=== PATIENT | female | born 1945 | race Two or more races ===

== ENCOUNTER → 2017-03-17 | Outpatient (CLI) | payer MEDICARE, OTHER | LOC: WI 10:06 | PROVIDERS: ATTEND Nurse Practitioner | DX: Z12.31 Encounter for screening mammogram for malignant neoplasm of breast (principal) | CPT/HCPCS: 77067; G0202 ==

== ENCOUNTER → 2018-05-03 | Outpatient (CLI) | payer MEDICARE, OTHER ==
--- NOTE | 2018-05-05 17:25 | WOMENS IMAGING REPORT ---
EXAM DESCRIPTION: 3D SCREENING MAMMO BILAT COMPLETED DATE/TIME: 05/03/2018 10:48 am REASON FOR STUDY: SCREENING MAMMO Z12.31 ENCNTR SCREEN MAMMOGRAM FOR MALIGNANT NEOPLASM OF ISAI COMPARISON: 2012 to 2016 TECHNIQUE: Standard craniocaudal and mediolateral oblique views of each breast recorded using digita l acquisition and breast tomosynthesis. LIMITATIONS: None. FINDINGS: No masses, calcifications or architectural distortion. No areas of suspicion. Read with the assistance of CAD. .[facility] - R2 Cenova Version 1.3 .[facility] - R2 Cenova Version 1.3 .[facility] - R2 Cenova Version 2.4 .[facility] - R2 Cenova Version 2.4 .[facility] - R2 Auditing Coder Version 9.2 IMPRESSION: NORMAL MAMMOGRAM. BIRADS 1. BREAST DENSITY: b. There are scattered areas of fibroglandular density. BIRAD: 1 NEGATIVE RECOMMENDATION: ROUTINE SCREENING COMMENT: The patient has been notified of the results by letter per SA requirements. Additional no tification policies are in place for contacting patient with suspicious or incomplete findings. Quality ID #225: The [employer] recommends an annual screening mammogram for women aged 40 years or over. This facility utilizes a reminder system to ensure that all patients receive reminder letters, and/or direct phone calls for appointments. This includes reminders for routine scr eening mammograms, diagnostic mammograms, or other Breast Imaging Interventions when appropriate. Th is patient will be placed in the appropriate reminder system. The [employer] (ACR) has developed recommendations for screening MRI of the breast s in certain patient populations, to be used in conjunction with mammography. Breast MRI surveillanc e may be appropriate for women with more than 20% lifetime risk of developing breast cancer as deter mined by genetic testing, significant family history of the disease, or history of mantle radiation f or Hodgkins Disease. ACR Practice Guidelines 2008. DBT Technology DBT is a type of tomographic mammography. With conventional mammography, overlapping breast tissue ma y make lesions difficult to detect, even with good compression. DBT uses an x-ray tube that rotates a round the breast, taking images at different angles. These images are then combined to create thin sl ices of the breast that the radiologist can view as a 3D reconstruction. The [facility] unit can perform full-field digital mammograms (2D imaging); or DBT (3D imaging); or both, in a combination mode that quickly performs both the mammogram and the tomosynthesis scan while the breast is still compressed. PQRS 6045F: Fluoroscopic imaging is not utilized for breast tomosynthesis. TECHNICAL DOCUMENTATION: FINDING NUMBER: (1) ASSESSMENT: (1) JOB ID: [id number] [employer]- All Rights Reserved Reading location - IP/workstation name: [email or web address]
== END ==
LOC: WI 10:08
PROVIDERS: ATTEND Nurse Practitioner
DX: Z12.31 Encounter for screening mammogram for malignant neoplasm of breast (principal)
CPT/HCPCS: 77063; 77067

== ENCOUNTER 2019-02-13 14:04 | Inpatient (IN) | payer MEDICARE, OTHER ==
[2019-02-13] MEDS ORDERED: METHYLPREDNISOLONE INJ 125 MG/2 ML SDV IV ONE (14:27)
--- NOTE | 2019-02-13 14:48 | ER Document Report ---
ED General - General Chief Complaint: Shortness Of Breath Stated Complaint: SHORTNESS OF BREATH Time Seen by Provider: 02/13/19 14:17 TRAVEL OUTSIDE OF THE [place] IN LAST 30 DAYS: No - HPI Notes: Patient is a 74-year-old female presents to the emergency department for evaluation of difficulty breathing. She states that this is been going on for about 2 weeks. She states it feels consistent with her asthma. She has had a dry cough. She denies any pain of any sort. No fevers or chills, no nausea or vomiting. She does relate that she has had swelling in her legs. This is been going on for about a week. She has had bouts of this in the past. She is never been told she has heart failure. She does relate that she sleeps on 3 pillows at night. She denies any paroxysmal nocturnal dyspnea. She states she has nebulizers at home and they do not seem to work very consistently for her. She does feel improved after the DuoNeb treatment she received in route. She denies being on steroids recently. - Related Data Allergies/Adverse Reactions: No Known Allergies Allergy (Verified 07/26/16 08:19) Past Medical History - General Information source: Patient - Social History Smoking Status: Former Smoker Chew tobacco use (# tins/day): No Frequency of alcohol use: None Drug Abuse: None Family History: Reviewed & Not Pertinent Patient has suicidal ideation: No Patient has homicidal ideation: No - Past Medical History Cardiac Medical History: Reports: Hx Hypertension Denies: Hx Coronary Artery Disease, Hx DVT, Hx Heart Attack, Hx Peripheral Vascular Disease, Hx Pulmonary Embolism Pulmonary Medical History: Reports: Hx Asthma, Hx Pneumonia Denies: Hx Bronchitis Neurological Medical History: Denies: Hx Cerebrovascular Accident, Hx Seizures Renal/ Medical History: Denies: Hx Peritoneal Dialysis GI Medical History: Reports: Hx Gastroesophageal Reflux Disease Musculoskeletal Medical History: Reports Hx Arthritis Psychiatric Medical History: Reports: Hx Anxiety - and insomnia Past Surgical History: Reports: Hx Gynecologic Surgery - BLADDER SLING, Hx Orthopedic Surgery - right great to for hammer toe 15 years ago - Immunizations Hx Diphtheria, Pertussis, Tetanus Vaccination: No Review of Systems - Review of Systems Constitutional: No symptoms reported EENT: No symptoms reported Cardiovascular: See HPI Respiratory: See HPI Gastrointestinal: No symptoms reported Genitourinary: No symptoms reported Musculoskeletal: No symptoms reported Skin: No symptoms reported Neurological/Psychological: No symptoms reported Physical Exam - Vital signs Vitals: Resp Pulse Ox 22 H 94 02/13/19 14:19 02/13/19 14:19 - Notes Notes: Vital signs reviewed, please refer to chart. Patient is normocephalic, atraumatic. Pupils equal round, reactive to light. Neck is supple without meningismus. Heart is regular rate and rhythm. Lungs reveal diminished breath sounds throughout with scant wheeze at the bases, expiratory. Abdomen is soft, nontender, normoactive bowel sounds throughout. Extremities without cyanosis, clubbing. 2+ pitting pretibial edema bilaterally. No posterior calf tenderness. Peripheral pulses are equal. Skin is warm and dry. Patient is awake, alert, neurological exam is nonfocal. Course - Re-evaluation Re-evalutation: 02/13/19 14:46 Patient presents to the emergency department for evaluation. She complains of difficulty breathing, believes it to be her asthma. She does have new onset edema and some orthopnea as well. Will evaluate for signs of congestive heart failure on laboratory investigations. She is given steroids here. Her oxygen saturation remained 92% or above on room air. We will continue to follow. 02/13/19 20:22 Patient's initial troponin came back positive. Her second troponin is trending down. My strong suspicion is that she did have an AK at some point in the last several weeks. The troponins downtrending, I do not suspect this is active at this time, but this is all a new diagnosis of iliac disease. she certainly has new onset congestive heart failure. She has no vascular congestion on x-ray. Unfortunately, however, she does not have cardiology. She has never had any cardiac workup of any sort. She was given low-dose Lasix here, as to not over diurese this patient. She was given aspirin. I spoke to Dr. Vaughan, he will admit the patient for further care. 02/13/19 20:23 - Vital Signs Vital signs: Temp Pulse Resp BP Pulse Ox 97.5 F 84 22 H 157/80 H 92 02/13/19 22:02 02/13/19 22:02 02/13/19 22:02 02/13/19 22:02 02/13/19 22:02 - Laboratory Result Diagrams: 02/13/19 14:41 02/13/19 14:41 Laboratory results interpreted by me: 02/13/19 02/13/19 02/13/19 14:41 14:41 14:41 Plt Count 148 L Carbon Dioxide 35 H NT-Pro-B Natriuret Pep 1460 H - EKG Interpretation by Me Additional EKG results interpreted by me: 02/13/19 14:47 Sinus mechanism with a rate of 63 bpm. Normal axis and intervals, no acute ST changes concerning for ischemia or infarction. Discharge - Discharge Clinical Impression: Congestive heart failure (CHF), Non-ST elevation AK (NSTEMI) Condition: Stable Disposition: ADMITTED OBSERVATION Admitting Provider: Clement (Hospitalist) Unit Admitted: Telemetry
[2019-02-13 15:04] LABS: ABSOLUTE EOSINOPHILS # (AUTO) 0.2 10^3/uL (0.0-0.6); ABSOLUTE MONOCYTES (AUTO) 0.4 10^3/uL (0.1-1.4); ABSOLUTE NEUT (AUTO) 3.8 10^3/uL (1.7-8.2); BASOPHILS % (AUTO) 0.3 % (0-2); HEMATOCRIT 38.5 % (36.0-47.0); HEMOGLOBIN 13.1 g/dL (12.0-15.5); LYMPHOCYTES % (AUTO) 17.9 % (13-45); MEAN CORPUSCULAR HEMOGLOBIN 30.7 pg (27.0-33.4); MEAN CORPUSCULAR HGB CONC 34.2 g/dL (32.0-36.0); MEAN CORPUSCULAR VOLUME 90 fl (80-97); PLATELET COUNT 148 10^3/uL (150-450); RED BLOOD COUNT 4.28 10^6/uL (3.72-5.28); RED CELL DISTRIBUTION WIDTH 13.8 % (11.5-14.0); SEGMENTED NEUTROPHILS % (AUTO) 70.8 % (42-78); TOTAL CELLS COUNTED % (AUTO) 100 %; WHITE BLOOD COUNT 5.4 10^3/uL (4.0-10.5)
--- NOTE | 2019-02-13 15:08 | RADIOLOGY REPORT (SQ) ---
EXAM DESCRIPTION: CHEST SINGLE VIEW COMPLETED DATE/TIME: 02/13/2019 2:49 pm REASON FOR STUDY: dyspnea COMPARISON: None. EXAM PARAMETERS: NUMBER OF VIEWS: One view. TECHNIQUE: Single frontal radiographic view of the chest acquired. RADIATION DOSE: NA LIMITATIONS: None. FINDINGS: LUNGS AND PLEURA: Mild atelectasis at the bilateral lung bases. No sizable pleural effusi on or pneumothorax. Hyperlucent lungs are suggestive of emphysema. MEDIASTINUM AND HILAR STRUCTURES: Contour normal. HEART AND VASCULAR STRUCTURES: The heart is upper normal limit in size. No overt vascular congestion . BONES: No acute findings. HARDWARE: None in the chest. IMPRESSION: Mild bibasilar atelectasis. Emphysema. TECHNICAL DOCUMENTATION: JOB ID: [id number] 2010 [employer]- All Rights Reserved Reading location - IP/workstation name: [email or web address]
[2019-02-13 15:14] LABS: ALANINE AMINOTRANSFERASE 44 U/L (9-52); ALBUMIN 3.9 g/dL (3.5-5.0); ALKALINE PHOSPHATASE 86 U/L (38-126); ANION GAP 6 (5-19); ASPARTATE AMINO TRANSFERASE 29 U/L (14-36); BILIRUBIN,DIRECT 0.3 mg/dL (0.0-0.4); BILIRUBIN,TOTAL 0.7 mg/dL (0.2-1.3); BLOOD UREA NITROGEN 14 mg/dL (7-20); CALCIUM 9.6 mg/dL (8.4-10.2); CARBON DIOXIDE 35 mmol/L (22-30); CHLORIDE 98 mmol/L (98-107); CREATINE KINASE 45 U/L (30-135); GLUCOSE 109 mg/dL (75-110); POTASSIUM 3.8 mmol/L (3.6-5.0); SODIUM 139.3 mmol/L (137-145); TOTAL PROTEIN 6.9 g/dL (6.3-8.2)
[2019-02-13 15:35] LABS: CREATINE KINASE MB 1.37 ng/mL (<4.55)
[2019-02-13 15:37] LABS: TROPONIN I 0.333 ng/mL
[2019-02-13] MEDS ORDERED: ASPIRIN 81 MG TABLET, CHEWABLE PO ONE (15:46)
[2019-02-13] MEDS ORDERED: FUROSEMIDE INJ/PF 20 MG/2 ML SDV IV ONE ×2 (17:20→20:21)
[2019-02-13] MEDS ORDERED: IPRATROPIUM/ALBUTEROL 0.5-2.5 MG/3 ML AMPUL NEB ONE (20:08)
[2019-02-13] MEDS ORDERED: POTASSIUM CHLORIDE 10 MEQ CAPSULE.ER PO ONE (20:21)
[2019-02-13] MEDS ORDERED: ENALAPRILAT DIHYDRATE INJ/PF 1.25 MG/1 ML SDV IV ONE (20:21)
[2019-02-13] MEDS ORDERED: MAGNESIUM HYDROXIDE SUSP 30 ML UDCUP PO PRN (20:22)
[2019-02-13] MEDS ORDERED: MAG HYDROX/AL HYDROX/SIMETH SUSP 30 ML UDCUP PO PRN (20:22)
[2019-02-13] MEDS ORDERED: ZOLPIDEM TARTRATE 5 MG TABLET PO PRN (20:25)
[2019-02-13] MEDS ORDERED: ATORVASTATIN CALCIUM 80 MG TABLET PO ONE (20:26)
[2019-02-13] MEDS ORDERED: CLOPIDOGREL BISULFATE 300 MG TABLET PO ONE (20:28)
[2019-02-13] MEDS ORDERED: (PENDING PHARMACY ID) (Fluticasone/Salmeterol 1 INH) IH SCH (20:30)
[2019-02-13] MEDS: FUROSEMIDE 20 MG TABLET PO SCH (20:49)
[2019-02-13] MEDS: HEPARIN SOD (PORCINE) 5,000 UNIT/ML 1 ML SYRINGE SUBCUT SCH (21:33)
[2019-02-13] MEDS ORDERED: FLUTICASONE/VILANTEROL 200-25 MCG/DOSE IH ONE ×2 (21:40→22:00)
[2019-02-13 21:41] LABS: CREATINE KINASE MB 1.13 ng/mL (<4.55); TROPONIN I 0.285 ng/mL
--- NOTE | 2019-02-13 23:38 | EKG REPORT ---
SEVERITY:- BORDERLINE ECG - SINUS RHYTHM BORDERLINE INFERIOR Q WAVES : Confirmed by: Belinda Daniels 13-Feb-2019 23:37:25
[2019-02-14] MEDS ORDERED: ENALAPRILAT DIHYDRATE INJ/PF 1.25 MG/1 ML SDV IV ONE (00:50)
[2019-02-14 03:35] LABS: ABSOLUTE LYMPHOCYTES (AUTO) 0.4 10^3/uL (0.5-4.7); ABSOLUTE MONOCYTES (AUTO) 0.1 10^3/uL (0.1-1.4); ABSOLUTE NEUT (AUTO) 5.9 10^3/uL (1.7-8.2); BASOPHILS % (AUTO) 0.5 % (0-2); HEMATOCRIT 39.8 % (36.0-47.0); HEMOGLOBIN 13.7 g/dL (12.0-15.5); LYMPHOCYTES % (AUTO) 6.8 % (13-45); MEAN CORPUSCULAR HEMOGLOBIN 30.7 pg (27.0-33.4); MEAN CORPUSCULAR HGB CONC 34.5 g/dL (32.0-36.0); MEAN CORPUSCULAR VOLUME 89 fl (80-97); MONOCYTES % (AUTO) 1.4 % (3-13); PLATELET COUNT 152 10^3/uL (150-450); RED BLOOD COUNT 4.46 10^6/uL (3.72-5.28); RED CELL DISTRIBUTION WIDTH 13.5 % (11.5-14.0); SEGMENTED NEUTROPHILS % (AUTO) 91.3 % (42-78); TOTAL CELLS COUNTED % (AUTO) 100 %; WHITE BLOOD COUNT 6.5 10^3/uL (4.0-10.5)
[2019-02-14] MEDS: ACETAMINOPHEN 325 MG TABLET PO PRN (03:38)
[2019-02-14 03:47] LABS: ANION GAP 8 (5-19); BLOOD UREA NITROGEN 16 mg/dL (7-20); CALCIUM 10.1 mg/dL (8.4-10.2); CARBON DIOXIDE 32 mmol/L (22-30); CHLORIDE 97 mmol/L (98-107); CHOLESTEROL 225.01 mg/dL (0-200); GLUCOSE 182 mg/dL (75-110); TRIGLYCERIDES 55 mg/dL (<150)
[2019-02-14 03:57] LABS: DIRECT LDL 87 mg/dL (<100)
[2019-02-14 03:58] LABS: CREATINE KINASE MB 1.1 ng/mL (<4.55)
[2019-02-14 04:05] LABS: TROPONIN I 0.226 ng/mL
--- NOTE | 2019-02-14 04:18 | PDOC H&P ---
History of Present Illness Admission Date/PCP: 02/13/19 20:31 PASCALE SOOD Patient complains of: Shortness of breath History of Present Illness: NATE MALIK is a 74 year old female with a past medical history of hypertension, COPD, depression and obesity who presents with 2 weeks of increasing shortness of breath not associated productive cough, with rhinorrhea, sore throat, GERD. Symptoms not improved with home nebulizers she is not required sitting up in bed to sleep and noted swelling of the legs bilaterally. The symptoms prompting her to seek evaluation in the emergency room where she is found to have tachypnea, hypertensive urgency 185/80, inferior Q waves, crackles in the bases bilaterally, troponin of 0.3 and a BNP of 1460. She is greatly improved she is never experienced nausea, vomiting, palpitations or chest pain. She is referred to the hospitalist for admission after receiving aspirin, Solu- Medrol and albuterol. Patient denies recent use of [id number] medications and denies a history of congestive heart failure or previous cardiac stress testing.. Past Medical History Cardiac Medical History: Reports: Hypertension Denies: Coronary Artery Disease, DVT, Myocardial Infarction, Peripheral Vascular Disease, Pulmonary Embolism Pulmonary Medical History: Reports: Asthma, Pneumonia Denies: Bronchitis, Chronic Obstructive Pulmonary Disease (COPD) Neurological Medical History: Denies: Seizures GI Medical History: Reports: Gastroesophageal Reflux Disease Musculoskeltal Medical History: Reports: Arthritis Psychiatric Medical History: Denies: Depression Hematology: Denies: Anemia Past Surgical History Past Surgical History: Reports: Orthopedic Surgery - right great to for hammer toe 15 years ago Social History Information Source: Patient Smoking Status: Former Smoker Cigarettes Packs Per Day: 0.5 Frequency of Alcohol Use: None Hx Recreational Drug Use: No Drugs: None Hx Prescription Drug Abuse: No - Advance Directive Resuscitation Status: Full Code Family History Family History: CAD, COPD, Hypertension Parental Family History Reviewed: Yes Children Family History Reviewed: Yes Sibling(s) Family History Reviewed.: Yes Medication/Allergy Home Medications: Tiotropium [place] [Spiriva Handihaler 18 mcg/dose (30 Dose)] 1 cap IH DAILY 08/14/14 Citalopram Hydrobromide [Celexa 10 mg Tablet] 20 mg PO DAILY 07/26/16 Zolpidem Tartrate [Ambien 5 mg Tablet] 5 mg PO HSP PRN 07/26/16 Albuterol Sulfate [Proair HFA Inhalation Aerosol 8.5 gm MDI] 2 inh .ROUTE PRN PRN 02/13/19 Cetirizine HCl [Zyrtec 10 mg Tablet] 10 mg PO DAILY 02/13/19 Metoprolol Succinate 100 mg PO DAILY 02/13/19 Telmisartan/Hydrochlorothiazid [Micardis HCT 40-12.5 mg Tablet] 1 tab PO DAILY 02/13/19 Allergies/Adverse Reactions: No Known Allergies Allergy (Verified 07/26/16 08:19) Review of Systems Constitutional: PRESENT: as per HPI, fatigue, weight gain. ABSENT: chills, fever(s), headache(s), weight loss Eyes: ABSENT: visual disturbances Ears: ABSENT: hearing changes Cardiovascular: PRESENT: as per HPI, dyspnea on exertion, edema, orthropnea. ABSENT: chest pain, palpitations Respiratory: PRESENT: as per HPI, dyspnea. ABSENT: cough, hemoptysis, sputum Gastrointestinal: ABSENT: abdominal pain, constipation, diarrhea, hematemesis, hematochezia, nausea, vomiting Genitourinary: ABSENT: dysuria, hematuria Musculoskeletal: ABSENT: joint swelling Integumentary: ABSENT: rash, wounds Neurological: ABSENT: abnormal gait, abnormal speech, confusion, dizziness, focal weakness, syncope Psychiatric: ABSENT: anxiety, depression, homidical ideation, suicidal ideation Endocrine: ABSENT: cold intolerance, heat intolerance, polydipsia, polyuria Hematologic/Lymphatic: ABSENT: easy bleeding, easy bruising Physical Exam Vital Signs: Temp Pulse Resp BP Pulse Ox 97.4 F 64 21 H 150/81 H 94 02/14/19 03:39 02/14/19 03:39 02/14/19 03:39 02/14/19 03:39 02/14/19 03:39 Intake & Output 02/12/19 02/13/19 02/14/19 11:59 11:59 11:59 Weight 99.54 kg General appearance: PRESENT: cooperative, mild distress, obese. ABSENT: hard of hearing Head exam: PRESENT: atraumatic, normocephalic Eye exam: PRESENT: conjunctiva pink, EOMI, PERRLA. ABSENT: scleral icterus Ear exam: PRESENT: normal external ear exam Mouth exam: PRESENT: moist, tongue midline Neck exam: PRESENT: JVD. ABSENT: carotid bruit, lymphadenopathy, thyromegaly Respiratory exam: PRESENT: accessory muscle use, crackles, prolonged expiratory phas, symmetrical, tachypnea, wheezes. ABSENT: rhonchi, stridor Cardiovascular exam: PRESENT: gallop, +S1, +S2, tachycardia Pulses: PRESENT: normal dorsalis pedis pul Vascular exam: PRESENT: normal capillary refill GI/Abdominal exam: PRESENT: normal bowel sounds, soft. ABSENT: distended, guarding, mass, organolmegaly, rebound, tenderness Rectal exam: PRESENT: deferred Extremities exam: PRESENT: full ROM, +1 edema. ABSENT: calf tenderness, clubbing, pedal edema Neurological exam: PRESENT: alert, awake, oriented to person, oriented to place, oriented to time, oriented to situation, CN II-XII grossly intact. ABSENT: motor sensory deficit Psychiatric exam: PRESENT: appropriate affect, normal mood. ABSENT: homicidal ideation, suicidal ideation Skin exam: PRESENT: dry, intact, warm. ABSENT: cyanosis, rash Results Laboratory Results: 02/14/19 03:13 02/14/19 03:13 02/13/19 02/13/19 02/13/19 14:41 14:41 21:08 WBC 5.4 RBC 4.28 Hgb 13.1 Hct 38.5 MCV 90 MCH 30.7 MCHC 34.2 RDW 13.8 Plt Count 148 L Seg Neutrophils % 70.8 Lymphocytes % 17.9 Monocytes % 8.0 Eosinophils % 3.0 Basophils % 0.3 Absolute Neutrophils 3.8 Absolute Lymphocytes 1.0 Absolute Monocytes 0.4 Absolute Eosinophils 0.2 Absolute Basophils 0.0 Sodium 139.3 Potassium 3.8 Chloride 98 Carbon Dioxide 35 H Anion Gap 6 BUN 14 Creatinine 0.70 Est GFR ( Amer) > 60 Est GFR (Non-Af Amer) > 60 Glucose 109 Calcium 9.6 Magnesium Total Bilirubin 0.7 AST 29 ALT 44 Alkaline Phosphatase 86 Total Protein 6.9 Albumin 3.9 Triglycerides Cholesterol LDL Cholesterol Direct VLDL Cholesterol HDL Cholesterol TSH 0.58 02/14/19 02/14/19 03:13 03:13 WBC 6.5 RBC 4.46 Hgb 13.7 Hct 39.8 MCV 89 MCH 30.7 MCHC 34.5 RDW 13.5 Plt Count 152 Seg Neutrophils % 91.3 H Lymphocytes % 6.8 L Monocytes % 1.4 L Eosinophils % 0.0 Basophils % 0.5 Absolute Neutrophils 5.9 Absolute Lymphocytes 0.4 L Absolute Monocytes 0.1 Absolute Eosinophils 0.0 Absolute Basophils 0.0 Sodium 137.0 Potassium 4.0 Chloride 97 L Carbon Dioxide 32 H Anion Gap 8 BUN 16 Creatinine 0.57 Est GFR ( Amer) > 60 Est GFR (Non-Af Amer) > 60 Glucose 182 H Calcium 10.1 Magnesium 1.8 Total Bilirubin AST ALT Alkaline Phosphatase Total Protein Albumin Triglycerides 55 Cholesterol 225.01 H LDL Cholesterol Direct 87 VLDL Cholesterol 11.0 HDL Cholesterol 124 TSH 02/13/19 02/13/19 02/13/19 14:41 14:41 18:10 Creatine Kinase 45 CK-MB (CK-2) 1.37 Troponin I 0.333 0.298 NT-Pro-B Natriuret Pep 1460 H 02/13/19 02/13/19 02/14/19 21:08 21:08 03:13 Creatine Kinase 44 45 CK-MB (CK-2) 1.13 Troponin I 0.285 NT-Pro-B Natriuret Pep 02/14/19 03:13 Creatine Kinase CK-MB (CK-2) 1.10 Troponin I 0.226 NT-Pro-B Natriuret Pep Impressions: Chest X-Ray 02/13/19 14:26 IMPRESSION: Mild bibasilar atelectasis. Emphysema. Assessment and Plan - Diagnosis (1) Non-ST elevation RI (NSTEMI) Is this a current diagnosis for this admission?: Yes Plan: IMCU admission, aspirin, Plavix, Vasotec and Lovenox. Follow-up serial cardiac enzymes, TSH and cardiac stress test. (2) Congestive heart failure (CHF) Is this a current diagnosis for this admission?: Yes Plan: New onset, diuretic and transdermal nitro initiated. Follow-up 2D echo (3) COPD exacerbation Is this a current diagnosis for this admission?: Yes Plan: Supplemental oxygen, flutter valve and incentive spirometry, consider steroids - Time Time Spent with patient: 35 or more minutes - Inpatient Certification Medical Necessity: Need Close Monitoring Due to Risk of Patient Decompensation
[2019-02-14] MEDS: HEPARIN SOD (PORCINE) 5,000 UNIT/ML 1 ML SYRINGE SUBCUT SCH ×3 (05:19→21:08)
[2019-02-14] MEDS: PANTOPRAZOLE SODIUM 40 MG TABLET.DR PO SCH (05:19)
[2019-02-14] MEDS ORDERED: ALBUTEROL SULFATE HFA (90 MCG/PUFF) 200 PUFF/8.5 GM MDI IH PRN (08:57)
[2019-02-14] MEDS: FLUTICASONE/VILANTEROL 200-25 MCG/DOSE IH SCH (09:52)
[2019-02-14] MEDS: FUROSEMIDE 20 MG TABLET PO SCH (09:53)
[2019-02-14] MEDS: DOCUSATE SODIUM 100 MG CAPSULE PO SCH (09:53)
[2019-02-14] MEDS: CETIRIZINE 10 MG TABLET PO SCH (09:54)
[2019-02-14] MEDS: CITALOPRAM HYDROBROMIDE 20 MG TABLET PO SCH (09:54)
[2019-02-14] MEDS: NITROGLYCERIN 2.5 MG (0.1 MG/HR) PATCH.TD24 TD SCH (09:54)
[2019-02-14] MEDS: ASPIRIN 81 MG TABLET, ENT COATED PO SCH (09:54)
[2019-02-14] MEDS: TIOTROPIUM BROMIDE DPI 5 CAP/KIT (18 MCG/CAP) IH SCH (09:55)
[2019-02-14] MEDS ORDERED: ATORVASTATIN CALCIUM 10 MG TABLET PO SCH (10:00)
[2019-02-14] MEDS ORDERED: (PENDING PHARMACY ID) (Telmisartan/Hydrochlorothiazid [Micardis Hct 40-12.5 Mg Tablet] 1 T PO SCH (10:00)
[2019-02-14] MEDS ORDERED: LOSARTAN POTASSIUM 50 MG TABLET PO SCH (10:00)
[2019-02-14] MEDS ORDERED: (PENDING PHARMACY ID) (Fluticasone/Salmeterol 1 INH) IH SCH (10:00)
[2019-02-14] MEDS ORDERED: HYDROCHLOROTHIAZIDE 12.5 MG TABLET PO SCH (10:00)
[2019-02-14 10:45] LABS: CREATINE KINASE MB 1.1 ng/mL (<4.55)
[2019-02-14 10:47] LABS: TROPONIN I 0.225 ng/mL
[2019-02-14] MEDS ORDERED: (PENDING PHARMACY ID) (Clobetasol Propionate/Emoll [Clobetasol Emollient 0.05% Crm] 1 APPL TP SCH (11:30)
--- NOTE | 2019-02-14 11:31 | PDOC PROGRESS REPORT ---
Subjective Progress Note for:: 02/14/19 Subjective:: 74 year old female with a past medical history of hypertension, COPD, depression and obesity who presents with 2 weeks of increasing shortness of breath not associated productive cough, with rhinorrhea, sore throat, GERD. Symptoms not improved with home nebulizers she is not required sitting up in bed to sleep and noted swelling of the legs bilaterally. The symptoms prompting her to seek evaluation in the emergency room where she is found to have tachypnea, hypertensive urgency 185/80, inferior Q waves, crackles in the bases bilaterally, troponin of 0.3 and a BNP of 1460. She is greatly improved she is never experienced nausea, vomiting, palpitations or chest pain. She is referred to the hospitalist for admission after receiving aspirin, Solu-Medrol and albuterol. Patient denies recent use of lozi-hli-gztyxbu medications and denies a history of congestive heart failure or previous cardiac stress testing.. 02/14/[id number]-bmzl-old female with history of hypertension, COPD, depression, obesity came in with increasing shortness of breath associated with productive cough and rhinorrhea, sore throat. She is found to be tachypneic and with hypertensive urgency, crackles at the bases bilaterally initial troponin is 0.03 and BNP is 1460. She was scheduled for the stress test but because of the elevated troponins it was postponed to tomorrow. Latest troponin is 0.225. Trending down. Patient is asymptomatic. Comfortable in the bed communicating well. Reason For Visit: HEART FAILURE,HTN,CAD Physical Exam Vital Signs: Temp Pulse Resp BP Pulse Ox 97.5 F 61 18 159/70 H 98 02/14/19 07:44 02/14/19 07:44 02/14/19 07:44 02/14/19 07:44 02/14/19 07:44 Intake & Output 02/13/19 02/14/19 02/15/19 06:59 06:59 06:59 Weight 99.9 kg General appearance: PRESENT: no acute distress, obese Head exam: PRESENT: atraumatic Eye exam: PRESENT: PERRLA Mouth exam: PRESENT: moist, tongue midline Neck exam: ABSENT: carotid bruit, JVD, lymphadenopathy, thyromegaly Respiratory exam: PRESENT: clear to auscultation raul. ABSENT: rales, rhonchi, wheezes Cardiovascular exam: PRESENT: RRR. ABSENT: diastolic murmur, rubs, systolic murmur GI/Abdominal exam: PRESENT: normal bowel sounds, soft. ABSENT: distended, guarding, mass, organolmegaly, rebound, tenderness Neurological exam: PRESENT: alert, awake, oriented to person, oriented to place, oriented to time, oriented to situation, CN II-XII grossly intact. ABSENT: motor sensory deficit Psychiatric exam: PRESENT: appropriate affect, normal mood. ABSENT: homicidal ideation, suicidal ideation Results Laboratory Results: 02/14/19 03:13 02/14/19 03:13 02/13/19 02/13/19 02/13/19 14:41 14:41 21:08 WBC 5.4 RBC 4.28 Hgb 13.1 Hct 38.5 MCV 90 MCH 30.7 MCHC 34.2 RDW 13.8 Plt Count 148 L Seg Neutrophils % 70.8 Lymphocytes % 17.9 Monocytes % 8.0 Eosinophils % 3.0 Basophils % 0.3 Absolute Neutrophils 3.8 Absolute Lymphocytes 1.0 Absolute Monocytes 0.4 Absolute Eosinophils 0.2 Absolute Basophils 0.0 Sodium 139.3 Potassium 3.8 Chloride 98 Carbon Dioxide 35 H Anion Gap 6 BUN 14 Creatinine 0.70 Est GFR ( Amer) > 60 Est GFR (Non-Af Amer) > 60 Glucose 109 Calcium 9.6 Magnesium Total Bilirubin 0.7 AST 29 ALT 44 Alkaline Phosphatase 86 Total Protein 6.9 Albumin 3.9 Triglycerides Cholesterol LDL Cholesterol Direct VLDL Cholesterol HDL Cholesterol TSH 0.58 02/14/19 02/14/19 03:13 03:13 WBC 6.5 RBC 4.46 Hgb 13.7 Hct 39.8 MCV 89 MCH 30.7 MCHC 34.5 RDW 13.5 Plt Count 152 Seg Neutrophils % 91.3 H Lymphocytes % 6.8 L Monocytes % 1.4 L Eosinophils % 0.0 Basophils % 0.5 Absolute Neutrophils 5.9 Absolute Lymphocytes 0.4 L Absolute Monocytes 0.1 Absolute Eosinophils 0.0 Absolute Basophils 0.0 Sodium 137.0 Potassium 4.0 Chloride 97 L Carbon Dioxide 32 H Anion Gap 8 BUN 16 Creatinine 0.57 Est GFR ( Amer) > 60 Est GFR (Non-Af Amer) > 60 Glucose 182 H Calcium 10.1 Magnesium 1.8 Total Bilirubin AST ALT Alkaline Phosphatase Total Protein Albumin Triglycerides 55 Cholesterol 225.01 H LDL Cholesterol Direct 87 VLDL Cholesterol 11.0 HDL Cholesterol 124 TSH 02/13/19 02/13/19 02/13/19 14:41 14:41 18:10 Creatine Kinase 45 CK-MB (CK-2) 1.37 Troponin I 0.333 0.298 NT-Pro-B Natriuret Pep 1460 H 02/13/19 02/13/19 02/14/19 21:08 21:08 03:13 Creatine Kinase 44 45 CK-MB (CK-2) 1.13 Troponin I 0.285 NT-Pro-B Natriuret Pep 02/14/19 02/14/19 02/14/19 03:13 09:32 09:32 Creatine Kinase 49 CK-MB (CK-2) 1.10 1.10 Troponin I 0.226 0.225 NT-Pro-B Natriuret Pep Impressions: Chest X-Ray 02/13/19 14:26 IMPRESSION: Mild bibasilar atelectasis. Emphysema. Assessment and Plan - Diagnosis (1) Non-ST elevation MA (NSTEMI) Is this a current diagnosis for this admission?: Yes Plan: IMCU admission, aspirin, Plavix, Vasotec and Lovenox. Follow-up serial cardiac enzymes, TSH and cardiac stress test. 02/14/2019-patient came in with shortness of breath and elevated troponins. Troponin is trending down. Scheduled for the stress test today because of the slightly elevated troponins it was canceled and moved to tomorrow. Patient is asymptomatic. Latest blood pressure is 159/70. Chest x-ray shows emphysema no evidence of fluid overload. Patient is on heparin 5000 units subcu every 8 hours. Also on atorvastatin, aspirin. A lipid panel was requested for tomorrow. Plan is to change the status to inpatient. (2) Congestive heart failure (CHF) Is this a current diagnosis for this admission?: Yes Plan: New onset, diuretic and transdermal nitro initiated. Follow-up 2D echo 02/14/2019-patient came in with elevated BNP. Chest x-ray was negative for fluid overload. In with increasing shortness of breath. Troponins are slightly elevated may be secondary to oxygen demand and supply discrepancy. Cardiogram is pending. (3) COPD exacerbation Is this a current diagnosis for this admission?: Yes Plan: Supplemental oxygen, flutter valve and incentive spirometry, consider steroids 02/14/2019-patient is denying she has history of COPD she is not on home oxygen. Presently on oxygen supplementation, flutter wall therapy, incentive spirometry. Pulse ox is 98% on 2 L. Chest x-ray bilateral entry was decreased no wheezing no crepitations. Patient is given the history of asthma chest x-ray indicates emphysema. (4) Obesity (BMI 30-39.9) Is this a current diagnosis for this admission?: No Plan: 02/14/2019-patient's BMI is more than 35 diet exercise weight loss lifestyle modifications are discussed with the patient. Dietary consult was requested. (5) Elevated troponin Is this a current diagnosis for this admission?: Yes Plan: 02/14/2019-patient came in is slightly elevated troponins with Q waves in the EKG patient is scheduled for the stress test tomorrow. Slightly elevated troponins most likely secondary to COPD exacerbation causing oxygen demand and supply mismatch. - Time Time Spent with patient: 15-24 minutes Medications reviewed and adjusted accordingly: Yes Anticipated discharge: Home
[2019-02-14 15:35] LABS: CREATINE KINASE MB 0.83 ng/mL (<4.55)
[2019-02-14 15:41] LABS: TROPONIN I 0.229 ng/mL
[2019-02-14] MEDS: CLOBETASOL PROPIONATE 0.05% CREAM 15 GM TP SCH (18:30)
--- NOTE | 2019-02-14 20:02 | EKG REPORT ---
SEVERITY:- NORMAL ECG - SINUS RHYTHM : Confirmed by: Amy Chung MD 14-Feb-2019 20:00:39
[2019-02-14 21:17] LABS: CREATINE KINASE MB 0.74 ng/mL (<4.55)
[2019-02-14 21:46] LABS: TROPONIN I 0.23 ng/mL
[2019-02-15] MEDS: HEPARIN SOD (PORCINE) 5,000 UNIT/ML 1 ML SYRINGE SUBCUT SCH ×3 (05:05→21:14)
[2019-02-15] MEDS: PANTOPRAZOLE SODIUM 40 MG TABLET.DR PO SCH (05:06)
[2019-02-15 07:26] LABS: ABSOLUTE EOSINOPHILS # (AUTO) 0.2 10^3/uL (0.0-0.6); ABSOLUTE LYMPHOCYTES (AUTO) 1.4 10^3/uL (0.5-4.7); ABSOLUTE MONOCYTES (AUTO) 0.5 10^3/uL (0.1-1.4); ABSOLUTE NEUT (AUTO) 3.4 10^3/uL (1.7-8.2); BASOPHILS % (AUTO) 0.4 % (0-2); EOSINOPHILS % (AUTO) 3.2 % (0-6); HEMATOCRIT 39.7 % (36.0-47.0); HEMOGLOBIN 13.7 g/dL (12.0-15.5); LYMPHOCYTES % (AUTO) 24.8 % (13-45); MEAN CORPUSCULAR HEMOGLOBIN 31.1 pg (27.0-33.4); MEAN CORPUSCULAR HGB CONC 34.5 g/dL (32.0-36.0); MEAN CORPUSCULAR VOLUME 90 fl (80-97); MONOCYTES % (AUTO) 9.5 % (3-13); PLATELET COUNT 135 10^3/uL (150-450); RED BLOOD COUNT 4.41 10^6/uL (3.72-5.28); RED CELL DISTRIBUTION WIDTH 13.7 % (11.5-14.0); SEGMENTED NEUTROPHILS % (AUTO) 62.1 % (42-78); TOTAL CELLS COUNTED % (AUTO) 100 %; WHITE BLOOD COUNT 5.5 10^3/uL (4.0-10.5)
[2019-02-15 07:58] LABS: ALANINE AMINOTRANSFERASE 36 U/L (9-52); ALBUMIN 3.8 g/dL (3.5-5.0); ALKALINE PHOSPHATASE 81 U/L (38-126); ASPARTATE AMINO TRANSFERASE 20 U/L (14-36); BILIRUBIN,DIRECT 0.3 mg/dL (0.0-0.4); BILIRUBIN,TOTAL 0.8 mg/dL (0.2-1.3); BLOOD UREA NITROGEN 21 mg/dL (7-20); CALCIUM 9.6 mg/dL (8.4-10.2); CHOLESTEROL 197.79 mg/dL (0-200); GLUCOSE 107 mg/dL (75-110); TOTAL PROTEIN 6.8 g/dL (6.3-8.2); TRIGLYCERIDES 90 mg/dL (<150)
[2019-02-15 08:04] LABS: CARBON DIOXIDE 39 mmol/L (22-30); CHLORIDE 95 mmol/L (98-107); SODIUM 138.4 mmol/L (137-145)
[2019-02-15 08:06] LABS: ANION GAP 4 (5-19)
[2019-02-15 08:12] LABS: DIRECT LDL 74 mg/dL (<100)
[2019-02-15 08:13] LABS: TROPONIN I 0.239 ng/mL
--- NOTE | 2019-02-15 08:14 | PDOC PROGRESS REPORT ---
Subjective Progress Note for:: 02/15/19 Subjective:: 74 year old female with a past medical history of hypertension, COPD, depression and obesity who presents with 2 weeks of increasing shortness of breath not associated productive cough, with rhinorrhea, sore throat, GERD. Symptoms not improved with home nebulizers she is not required sitting up in bed to sleep and noted swelling of the legs bilaterally. The symptoms prompting her to seek evaluation in the emergency room where she is found to have tachypnea, hype rtensive urgency 185/80, inferior Q waves, crackles in the bases bilaterally, troponin of 0.3 and a BNP of 1460. She is greatly improved she is never experienced nausea, vomiting, palpitations or chest pain. She is referred to the hospitalist for admission after receiving aspirin, Solu-Medrol and albuterol. Patient denies recent use of kldo-nnz-sqgvebe medications and denies a history of congestive heart failure or previous cardiac stress testing. 02/15/2019. No acute events overnight. Patient has not had any recurrence of her chest pain since yesterday. Had a good night sleep and denying any pain. She is p.o. tolerant however n.p.o. for stress test. She is having normal bowel and bladder functions. She is ambulatory. On supplemental oxygen. She was scheduled to have a stress test today however it is canceled in favor of cardiac catheterization tomorrow by cardiology. She denies any fever, chills, nausea, chills, fever, chest pain, shortness of breath, diarrhea, constipation or any urinary symptoms. Reason For Visit: CHECT PAIN Physical Exam Vital Signs: Temp Pulse Resp BP Pulse Ox 97.9 F 61 18 170/71 H 96 02/15/19 07:39 02/15/19 07:39 02/15/19 07:39 02/15/19 07:39 02/15/19 07:39 Intake & Output 02/14/19 02/15/19 02/16/19 06:59 06:59 06:59 Intake Total 1764 Balance 1764 Weight 99.9 kg 98.6 kg General appearance: PRESENT: obese Head exam: PRESENT: atraumatic, normocephalic Respiratory exam: PRESENT: clear to auscultation raul, prolonged expiratory phas, wheezes - expriratory. ABSENT: rales, rhonchi Cardiovascular exam: PRESENT: RRR. ABSENT: diastolic murmur, rubs, systolic murmur GI/Abdominal exam: PRESENT: normal bowel sounds, soft. ABSENT: distended, guarding, mass, organolmegaly, rebound, tenderness Extremities exam: PRESENT: full ROM. ABSENT: calf tenderness, clubbing, pedal edema Neurological exam: PRESENT: alert, awake, oriented to person, oriented to place, oriented to time, oriented to situation, CN II-XII grossly intact. ABSENT: motor sensory deficit Results Laboratory Results: 02/15/19 06:28 02/15/19 06:28 WBC 5.5 RBC 4.41 Hgb 13.7 Hct 39.7 MCV 90 MCH 31.1 MCHC 34.5 RDW 13.7 Plt Count 135 L Seg Neutrophils % 62.1 Lymphocytes % 24.8 Monocytes % 9.5 Eosinophils % 3.2 Basophils % 0.4 Absolute Neutrophils 3.4 Absolute Lymphocytes 1.4 Absolute Monocytes 0.5 Absolute Eosinophils 0.2 Absolute Basophils 0.0 02/13/19 02/13/19 02/13/19 14:41 14:41 18:10 Creatine Kinase 45 CK-MB (CK-2) 1.37 Troponin I 0.333 0.298 NT-Pro-B Natriuret Pep 1460 H 02/13/19 02/13/19 02/14/19 21:08 21:08 03:13 Creatine Kinase 44 45 CK-MB (CK-2) 1.13 Troponin I 0.285 NT-Pro-B Natriuret Pep 02/14/19 02/14/19 02/14/19 03:13 09:32 09:32 Creatine Kinase 49 CK-MB (CK-2) 1.10 1.10 Troponin I 0.226 0.225 NT-Pro-B Natriuret Pep 02/14/19 02/14/19 02/14/19 14:50 14:50 20:30 Creatine Kinase 45 45 CK-MB (CK-2) 0.83 Troponin I 0.229 NT-Pro-B Natriuret Pep 02/14/19 20:30 Creatine Kinase CK-MB (CK-2) 0.74 Troponin I 0.230 NT-Pro-B Natriuret Pep Impressions: Chest X-Ray 02/13/19 14:26 IMPRESSION: Mild bibasilar atelectasis. Emphysema. Assessment and Plan - Diagnosis (1) Non-ST elevation AR (NSTEMI) Is this a current diagnosis for this admission?: Yes Plan: No chest pain recurrence. Continue telemetry Continue ASA, valsartan, statins and heparin. Troponins 0.022, 0.023, 0.0239. TSH 0.58. Pending 2D echo results. Cardiac a stress test was canceled in favor of left heart cath on 02/16/2019. Cardiology following. (2) Hypertension Is this a current diagnosis for this admission?: Yes Plan: Not optimized. SBP 150s -170s Increase ARB, switch HCTZ to chlorthalidone. Continue Lasix. Optimize meds as needed. (3) COPD exacerbation Is this a current diagnosis for this admission?: Yes Plan: DuoNeb's, supplemental oxygen, incentive spirometry, PRN BiPAP. Started on steroids. Former smoker. Saturating high 90s on 2 L. Not on home oxygen. (4) Congestive heart failure (CHF) Is this a current diagnosis for this admission?: Yes Plan: New onset. Based on physical examination and laboratory findings. Pending 2D echo. 02/13/2019 BNP 1460. Cardiac diet, fluid restriction and diuretics. (5) Elevated troponin Is this a current diagnosis for this admission?: Yes Plan: Likely demand ischemia due to COPD exacerbation. Troponins 0.022, 0.023, 0.0239. TSH 0.58. Pending 2D echo results. Scheduled for left heart cath tomorrow. Cardiology on board. Continue ASA, statins, ARB. (6) Obesity (BMI 30-39.9) Is this a current diagnosis for this admission?: No Plan: Diet and lifestyle modification.
[2019-02-15] MEDS: FLUTICASONE/VILANTEROL 200-25 MCG/DOSE IH SCH (09:34)
[2019-02-15] MEDS: TIOTROPIUM BROMIDE DPI 5 CAP/KIT (18 MCG/CAP) IH SCH (09:34)
[2019-02-15] MEDS: NITROGLYCERIN 2.5 MG (0.1 MG/HR) PATCH.TD24 TD SCH (09:35)
[2019-02-15] MEDS: CHLORTHALIDONE 25 MG TABLET PO SCH (09:37)
[2019-02-15] MEDS: DOCUSATE SODIUM 100 MG CAPSULE PO SCH (09:38)
[2019-02-15] MEDS: CITALOPRAM HYDROBROMIDE 20 MG TABLET PO SCH (09:38)
[2019-02-15] MEDS: FUROSEMIDE 20 MG TABLET PO SCH (09:38)
[2019-02-15] MEDS: ASPIRIN 81 MG TABLET, ENT COATED PO SCH (09:38)
[2019-02-15] MEDS: CETIRIZINE 10 MG TABLET PO SCH (09:38)
[2019-02-15] MEDS: LOSARTAN POTASSIUM 50 MG TABLET PO SCH (09:39)
[2019-02-15] MEDS: CLOBETASOL PROPIONATE 0.05% CREAM 15 GM TP SCH ×2 (09:40→17:43)
--- NOTE | 2019-02-15 10:14 | EKG REPORT ---
SEVERITY:- BORDERLINE ECG - SINUS RHYTHM BORDERLINE R WAVE PROGRESSION, ANTERIOR LEADS : Confirmed by: Amy Chung MD 15-Feb-2019 10:13:43
[2019-02-15] MEDS: METHYLPREDNISOLONE INJ 40 MG/1 ML SDV IV SCH ×2 (14:18→21:18)
[2019-02-15] MEDS: ACETAMINOPHEN 325 MG TABLET PO PRN (14:20)
--- NOTE | 2019-02-15 14:22 | RADIOLOGY REPORT (SQ) ---
EXAM DESCRIPTION: CTA CHEST COMPLETED DATE/TIME: 02/15/2019 2:08 pm REASON FOR STUDY: SOB : Assess PE D50.9 IRON DEFICIENCY ANEMIA, UNSPECIFIED I50.20 UNSPECIFIED SYS TOLIC (CONGESTIVE) HEART FAILURE E78.5 HYPERLIPIDEMIA, UNSPECIFIED COMPARISON: Chest radiograph, 02/13/2019 TECHNIQUE: CT scan of the chest performed using helical scanning technique with dynamic intravenous contrast injection. Images reviewed with lung, soft tissue and bone windows. Reconstructed coronal and sagittal MPR images reviewed. Additional 3 dimensional post-processing performed to develop Maximal Intensity Projection images ([place] P). All images stored on PACS. All CT scanners at this facility use dose modulation, iterative reconstruction, and/or weight based d osing when appropriate to reduce radiation dose to as low as reasonably achievable (ALARA). [facility]: Dose Right [facility]: CareDose [facility]: Dose Right [facility]: Teradose 4D [facility]: [employer] CONTRAST TYPE AND DOSE: contrast/concentration: Isovue 350.00 mg/ml; Total Contrast Delivered: 78.0 ml; Total Saline Delivered: 110.0 ml Contrast bolus optimized for the pulmonary arteries. Not diagnostic for the aorta. RENAL FUNCTION: GFR > 60. RADIATION DOSE: CT Rad equipment meets quality standard of care and radiation dose reduction techniq ues were employed. CTDIvol: 15.0 - 15.4 mGy. DLP: 567 mGy-cm. . LIMITATIONS: None. FINDINGS: LUNGS AND PLEURA: No masses, infiltrates, or pneumothorax. No pleural effusions or pleura l calcifications. AORTA AND GREAT VESSELS: No aneurysm. Contrast bolus not optimized for the aorta. HEART: No pericardial effusion. Scattered three-vessel coronary artery calcifications. PULMONARY ARTERIES: No emboli visualized in the main pulmonary arteries or the segmental branches. HILAR AND MEDIASTINAL STRUCTURES: No identified masses or abnormal nodes. HARDWARE: None in the chest. UPPER ABDOMEN: Cholelithiasis. THYROID AND OTHER SOFT TISSUES: No masses. No adenopathy. BONES: Age indeterminate, partially imaged superior endplate deformity of the L1 vertebral body. 3D MIPS: Confirm above findings. OTHER: No other significant finding. IMPRESSION: 1. Negative examination for pulmonary embolism. 2. Coronary artery disease. 3. Age indeterminate, partially imaged superior endplate deformity of the L1 vertebral body. COMMENT: Quality ID # [id number]: Final reports with documentation of one or more dose reduction techniques (e.g., Automated exposure control, adjustment of the mA and/or kV according to patient size, use of iterative reconstruction technique) TECHNICAL DOCUMENTATION: JOB ID: [id number] [employer]- All Rights Reserved Reading location - IP/workstation name: [email or web address]
--- NOTE | 2019-02-15 20:23 | XCELERA REPORT ---
[address] [address] Transthoracic Echocardiogram Report Name: NATE MALIK Age: 74 yrs Gender: Female : 1945 Patient Status: Inpatient Patient Location: [address] [place], [place] [address]A Study Date: 02/14/2019 05:54 PM Height: 66 in Weight: 219 lb BSA: 2.1 m2 Procedure: A two-dimensional transthoracic echocardiogram with color flow and Doppler was performed. Study Quality: Poor. Images were not obtained from all of the standard acoustic windows due to the limited scope of the study. Reason For Study: systolic murmur History: systolic murmur. Ordering Physician: NARESH HAND Performed By: Allison Cunningham Interpretation Summary The left ventricle is normal in size. There is normal left ventricular wall thickness. The left ventricular ejection fraction is within normal limits. LV EF is 60% Doppler measurements suggest impaired left ventricular relaxation, which is associated with grade I/IV or mild diastolic dysfunction No True apical 2 chamber views obtained.Hence cannot comment on the apical anterior , the basal anterior, the basal inferior and apical inferior herrera.The mid anterior , the mid inferior and the rest of the LV herrera contract normally. . LVEF is normal and is greater than 60% in the limited views. There is no thrombus. Probably no ASD , VSD , or PFO seen, but not a reilable study for this. The right atrium is normal. The left atrial size is normal. There is mild mitral annular calcification. There is no evidence of mitral valve prolapse. There is no vegetation seen on the mitral valve. There is no mitral valve stenosis. There is a trace amount of mitral regurgitation There is no aortic valvular vegetation. There is no aortic valve stenosis No aortic regurgitation is present. There is no tricuspid stenosis. There is a trace to mild amount of tricuspid regurgitation There is mild pulmonary hypertension by echo RVSP is 34 to 39 mm of Hg , with RA mean of 5 to 10. There is no pulmonic valvular stenosis. There is a trace amount of pulmonic regurgitation There is no pericardial effusion. MMode/2D Measurements & Calculations RVDd: 2.2 cm LVIDd: 5.3 cm FS: 29.8 % Ao root diam: 2.6 cm IVSd: 1.0 cm LVIDs: 3.7 cm EDV(Teich): 135.4 ml Ao root area: 5.3 cm2 LVPWd: 1.1 cm ESV(Teich): 58.9 ml LA dimension: 4.0 cm EF(Teich): 56.5 % Doppler Measurements & Calculations MV E max wendy: MV P1/2t max wendy: Ao V2 max: LV V1 max P.3 cm/sec 131.7 cm/sec 175.1 cm/sec 12.4 mmHg MV A max wendy: MV P1/2t: 73.7 msec Ao max PG: LV V1 max: 109.1 cm/sec MVA(P1/2t): 3.0 cm2 12.3 mmHg 175.8 cm/sec MV E/A: 0.91 MV dec slope: 523.2 cm/sec2 MV dec time: 0.24 sec PA V2 max: PI end-d wendy: TR max wendy: MV P1/2t-pr_phl: 122.2 cm/sec 137.1 cm/sec 267.4 cm/sec 73.7 msec PA max P.0 mmHg TR max P.6 mmHg Left Ventricle The left ventricle is normal in size. There is normal left ventricular wall thickness. The left ventricular ejection fraction is within normal limits. LV EF is 60%. Doppler measurements suggest impaired left ventricular relaxation, which is associated with grade I/IV or mild diastolic dysfunction. No True apical 2 chamber views obtained.Hence cannot comment on the apical anterior , the basal anterior, the basal inferior and apical inferior herrera.The mid anterior , the mid inferior and the rest of the LV herrera contract normally. . LVEF is normal and is greater than 60% in the limited views. There is no thrombus. Probably no ASD , VSD , or PFO seen, but not a reilable study for this. Right Ventricle The right ventricle is not well visualized secondary to technical limitations. Atria The right atrium is normal. The left atrial size is normal. Mitral Valve There is mild mitral annular calcification. There is no evidence of mitral valve prolapse. There is no vegetation seen on the mitral valve. There is no mitral valve stenosis. There is a trace amount of mitral regurgitation. Aortic Valve There is no aortic valvular vegetation. There is no aortic valve stenosis. No aortic regurgitation is present. Tricuspid Valve There is no tricuspid stenosis. There is a trace to mild amount of tricuspid regurgitation. There is mild pulmonary hypertension by echo. RVSP is 34 to 39 mm of Hg , with RA mean of 5 to 10. Pulmonic Valve There is no pulmonic valvular stenosis. There is a trace amount of pulmonic regurgitation. Effusions There is no pericardial effusion. : NARESH HAND > Amy Chung
[2019-02-15] MEDS: ATORVASTATIN CALCIUM 10 MG TABLET PO SCH (21:18)
--- NOTE | 2019-02-15 23:11 | Progress Note ---
Provider Note Provider Note: CARDIOLOGY PROGRESS NOTE by Dr. Carisa Chung on 02/15/2019. SUBJECTIVE: The patient states that his shortness of breath is much improved. She has no further wheezing. There is no chest pain or discomfort. There is orthopnea but no PND there is no leg edema at present. There is no arrhythmia seen on the monitor. There is no palpitations. There is no TIA CVA symptoms. The patient's troponin I still is slightly elevated compared to yesterday. Note that the yesterday the patient's shortness of breath as per patient's description was localized area of shortness of breath in the left front of the chest which is consistent with James's fist sign, which is angina equivalent. Also the patient's CT scan of the chest shows coronary artery calcification. PHYSICAL EXAMINATION: The patient is morbidly obese. At present in no acute distress. She is well-groomed. Selected Entries 02/15/19 19:30 Temperature 97.5 F Temperature Oral Source Pulse Rate 60 Respiratory 26 H Rate Blood Pressure 165/70 H Blood Pressure 101 Mean BP Location Right Arm BP Position Sitting O2 Sat by Pulse 93 Oximetry Oxygen Flow 2.00 Rate Oxygen Delivery Nasal Cannula Method HEAD: Is atraumatic normocephalic. EYES: Pupils are equal round regular react to light accommodation. Extraocular movements are normal. There is no conjunctival pallor there is no scleral icterus. EARS: Tympanic membranes are intact. External auditory canals are clear. NOSE: There is no deviated nasal septum. There is no inflammation of the nasal mucous membranes. MOUTH: Mucous membranes of mouth are moist tongue is moist. There is no ulcers. There is no bleeding from the gums. THROAT: There is no redness of the oropharynx. There is no exudates. SKIN: There is no skin rashes or skin lesions. There is no particular ecchymosis. NECK: Is supple there is no JVD. Carotids are equal there is no bruit. There is no lymphadenopathy. There is no goiter. There is no accessory muscle respiration use. There is no neck stiffness. Trachea central LUNGS: Fairly clear to auscultation percussion without any rhonchi rales or wheezing. There is no chest wall tenderness. HEART: S1-S2 is heard. S1 is of normal intensity. There is no S3 gallop. There is no S4 gallop. There is systolic murmur left sternal border and the apex there is no rub. ABDOMEN: Is obese nontender there is no hepatosplenomegaly. Bowel sounds is well heard. There is no rebound guarding or rigidity. EXTREMITIES: Femorals are deep. There is no femoral bruits. Leg pulses are diminished. There is no DVT or cellulitis. There is no pedal edema. There is no calf tenderness. There is no cyanosis or clubbing. GROUP PROGRAM MANAGER: The patient is conscious awake alert oriented x3 with no focal deficit. PSYCHIATRIC: The patient judgment insight are intact her affect is normal. 02/14/19 02/15/19 02/15/19 20:30 06:28 06:28 WBC 5.5 RBC 4.41 Hgb 13.7 Hct 39.7 MCV 90 MCH 31.1 MCHC 34.5 RDW 13.7 Plt Count 135 L Seg Neutrophils % 62.1 Sodium 138.4 Potassium 4.0 Chloride 95 L Carbon Dioxide 39 H Anion Gap 4 L BUN 21 H Creatinine 0.65 Est GFR (Non-Af Amer) > 60 Glucose 107 Calcium 9.6 Magnesium 2.0 Total Bilirubin 0.8 Direct Bilirubin 0.3 Neonat Total Bilirubin Not Reportable Neonat Direct Bilirubin Not Reportable Neonat Indirect Bili Not Reportable AST 20 ALT 36 Alkaline Phosphatase 81 CK-MB (CK-2) 0.74 Troponin I 0.230 NT-Pro-B Natriuret Pep Total Protein 6.8 Albumin 3.8 Triglycerides 90 Cholesterol 197.79 LDL Cholesterol Direct 74 VLDL Cholesterol 18.0 HDL Cholesterol 120 I . 02/15/19 06:28 WBC RBC Hgb Hct MCV MCH MCHC RDW Plt Count Seg Neutrophils % Sodium Potassium Chloride Carbon Dioxide Anion Gap BUN Creatinine Est GFR (Non-Af Amer) Glucose Calcium Magnesium Total Bilirubin Direct Bilirubin Neonat Total Bilirubin Neonat Direct Bilirubin Neonat Indirect Bili AST ALT Alkaline Phosphatase CK-MB (CK-2) Troponin I 0.239 NT-Pro-B Natriuret Pep 402 Total Protein Albumin Triglycerides Cholesterol LDL Cholesterol Direct VLDL Cholesterol HDL Cholesterol Chest X-Ray 02/13/19 14:26 IMPRESSION: Mild bibasilar atelectasis. Emphysema. Chest/Abdomen CTA 02/15/19 06:00 IMPRESSION: 1. Negative examination for pulmonary embolism. 2. Coronary artery disease. 3. Age indeterminate, partially imaged superior endplate deformity of the L1 vertebral body. EKG: Sinus rhythm. Borderline R wave progression anterior leads. Patient's echocardiogram shows normal left ventricular wall motion and ejection fraction. There is no evidence of Takutsubo cardiomyopathy IMPRESSION/RECOMMENDATION: 1. Elevated troponin I with the patient complaining of shortness of breath which she localizes over the left front of the chest over a small area [livings for sign] hence need to treat this as a non-ST elevation IA. Note that the patient CT of the chest does not show any pulmonary emboli. In view of this in view of the troponins relatively not coming down/not trending down would recommend the patient be transferred to tertiary care center for cardiac catheterization. 2. Acute asthmatic attack: At present resolved note in some acute case of asthma 1 could have talked with Takutsubo cardiomyopathy but this is not evident on the patient's echocardiogram. 3. Hypertension continue current medication. 4. Excellent lipid levels with very high HDL level of 120 and good triglyceride and LDL levels. 5. Morbid obesity. MEDICATIONS reviewed management plan discussed with the attending physician on the case. Discussed with the patient and patient's daughter. In view of the patient's troponin I hanging around 2.39, would strongly recommend transfer to tertiary care center for cardiac catheterization to make sure that this is not secondary to acute non-ST elevation IA. Medical decision making is of high complexity.
[2019-02-16] MEDS: HEPARIN SOD (PORCINE) 5,000 UNIT/ML 1 ML SYRINGE SUBCUT SCH ×3 (05:05→21:36)
[2019-02-16] MEDS: METHYLPREDNISOLONE INJ 40 MG/1 ML SDV IV SCH ×3 (05:08→21:36)
[2019-02-16] MEDS: PANTOPRAZOLE SODIUM 40 MG TABLET.DR PO SCH (05:08)
[2019-02-16] MEDS ORDERED: HYDRALAZINE HCL INJ/PF 20 MG/1 ML SDV IV PRN (07:40)
[2019-02-16 08:07] LABS: ABSOLUTE LYMPHOCYTES (AUTO) 0.5 10^3/uL (0.5-4.7); ABSOLUTE MONOCYTES (AUTO) 0.2 10^3/uL (0.1-1.4); ABSOLUTE NEUT (AUTO) 5.7 10^3/uL (1.7-8.2); BASOPHILS % (AUTO) 0.1 % (0-2); HEMATOCRIT 42.6 % (36.0-47.0); HEMOGLOBIN 14.6 g/dL (12.0-15.5); LYMPHOCYTES % (AUTO) 7.8 % (13-45); MEAN CORPUSCULAR HEMOGLOBIN 30.8 pg (27.0-33.4); MEAN CORPUSCULAR HGB CONC 34.4 g/dL (32.0-36.0); MEAN CORPUSCULAR VOLUME 90 fl (80-97); MONOCYTES % (AUTO) 2.5 % (3-13); PLATELET COUNT 166 10^3/uL (150-450); RED BLOOD COUNT 4.76 10^6/uL (3.72-5.28); RED CELL DISTRIBUTION WIDTH 13.4 % (11.5-14.0); SEGMENTED NEUTROPHILS % (AUTO) 89.6 % (42-78); TOTAL CELLS COUNTED % (AUTO) 100 %; WHITE BLOOD COUNT 6.3 10^3/uL (4.0-10.5)
[2019-02-16 08:34] LABS: ALANINE AMINOTRANSFERASE 31 U/L (9-52); ALBUMIN 4.2 g/dL (3.5-5.0); ALKALINE PHOSPHATASE 89 U/L (38-126); ANION GAP 6 (5-19); ASPARTATE AMINO TRANSFERASE 19 U/L (14-36); BILIRUBIN,DIRECT 0.3 mg/dL (0.0-0.4); BILIRUBIN,TOTAL 0.8 mg/dL (0.2-1.3); BLOOD UREA NITROGEN 23 mg/dL (7-20); CALCIUM 10.3 mg/dL (8.4-10.2); CARBON DIOXIDE 37 mmol/L (22-30); CHLORIDE 94 mmol/L (98-107); GLUCOSE 153 mg/dL (75-110); POTASSIUM 4.6 mmol/L (3.6-5.0); SODIUM 137.3 mmol/L (137-145); TOTAL PROTEIN 7.6 g/dL (6.3-8.2)
[2019-02-16] MEDS: CITALOPRAM HYDROBROMIDE 20 MG TABLET PO SCH (09:37)
[2019-02-16] MEDS: ASPIRIN 81 MG TABLET, ENT COATED PO SCH (09:38)
[2019-02-16] MEDS: FUROSEMIDE 20 MG TABLET PO SCH (09:38)
[2019-02-16] MEDS: CETIRIZINE 10 MG TABLET PO SCH (09:38)
[2019-02-16] MEDS: DOCUSATE SODIUM 100 MG CAPSULE PO SCH (09:38)
[2019-02-16] MEDS: LOSARTAN POTASSIUM 50 MG TABLET PO SCH (09:38)
[2019-02-16] MEDS: CHLORTHALIDONE 25 MG TABLET PO SCH (09:40)
[2019-02-16] MEDS: TIOTROPIUM BROMIDE DPI 5 CAP/KIT (18 MCG/CAP) IH SCH (09:40)
[2019-02-16] MEDS: FLUTICASONE/VILANTEROL 200-25 MCG/DOSE IH SCH (09:40)
[2019-02-16] MEDS: CLOBETASOL PROPIONATE 0.05% CREAM 15 GM TP SCH ×2 (09:49→17:34)
--- NOTE | 2019-02-16 18:49 | PDOC PROGRESS REPORT ---
Subjective Progress Note for:: 02/16/19 Subjective:: 74 year old female with a past medical history of hypertension, COPD, depression and obesity who presents with 2 weeks of increasing shortness of breath not associated productive cough, with rhinorrhea, sore throat, GERD. Symptoms not improved with home nebulizers she is not required sitting up in bed to sleep and noted swelling of the legs bilaterally. The symptoms prompting her to seek evaluation in the emergency room where she is found to have tachypnea, hype rtensive urgency 185/80, inferior Q waves, crackles in the bases bilaterally, troponin of 0.3 and a BNP of 1460. She is greatly improved she is never experienced nausea, vomiting, palpitations or chest pain. She is referred to the hospitalist for admission after receiving aspirin, Solu-Medrol and albuterol. Patient denies recent use of bado-gxy-mprjmae medications and denies a history of congestive heart failure or previous cardiac stress testing. 02/15/2019. No acute events overnight. Patient has not had any recurrence of her chest pain since yesterday. Had a good night sleep and denying any pain. She is p.o. tolerant however n.p.o. for stress test. She is having normal bowel and bladder functions. She is ambulatory. On supplemental oxygen. She was scheduled to have a stress test today however it is canceled in favor of cardiac catheterization tomorrow by cardiology. She denies any fever, chills, nausea, chills, fever, chest pain, shortness of breath, diarrhea, constipation or any urinary symptoms. 02/16/2019. No acute events overnight. Denies any recurrence of chest pain since admission. Patient is p.o. tolerant and having normal bladder and bowel function. Was scheduled for left heart cath today however was not done. Patient is pending transfer to a tertiary center for possible left heart cath. Cardiology on board. Reason For Visit: CHECT PAIN Physical Exam Vital Signs: Temp Pulse Resp BP Pulse Ox 97.4 F 69 18 128/80 H 94 02/16/19 16:30 02/16/19 16:30 02/16/19 16:30 02/16/19 16:30 02/16/19 16:30 Intake & Output 02/15/19 02/16/19 02/17/19 06:59 06:59 06:59 Intake Total 1764 1575 1720 Balance 1764 1575 1720 Weight 98.6 kg 97.8 kg General appearance: PRESENT: no acute distress, obese, well-developed, well- nourished Head exam: PRESENT: atraumatic, normocephalic Respiratory exam: PRESENT: clear to auscultation raul. ABSENT: rales, rhonchi, wheezes Cardiovascular exam: PRESENT: RRR. ABSENT: diastolic murmur, rubs, systolic murmur Pulses: PRESENT: normal dorsalis pedis pul Neurological exam: PRESENT: alert, awake, oriented to person, oriented to place, oriented to time, oriented to situation, CN II-XII grossly intact. ABSENT: motor sensory deficit Results Laboratory Results: 02/16/19 07:08 02/16/19 07:08 02/16/19 02/16/19 07:08 07:08 WBC 6.3 RBC 4.76 Hgb 14.6 Hct 42.6 MCV 90 MCH 30.8 MCHC 34.4 RDW 13.4 Plt Count 166 Seg Neutrophils % 89.6 H Lymphocytes % 7.8 L Monocytes % 2.5 L Eosinophils % 0.0 Basophils % 0.1 Absolute Neutrophils 5.7 Absolute Lymphocytes 0.5 Absolute Monocytes 0.2 Absolute Eosinophils 0.0 Absolute Basophils 0.0 Sodium 137.3 Potassium 4.6 Chloride 94 L Carbon Dioxide 37 H Anion Gap 6 BUN 23 H Creatinine 0.59 Est GFR ( Amer) > 60 Est GFR (Non-Af Amer) > 60 Glucose 153 H Calcium 10.3 H Magnesium 2.2 Total Bilirubin 0.8 AST 19 ALT 31 Alkaline Phosphatase 89 Total Protein 7.6 Albumin 4.2 02/13/19 02/13/19 02/13/19 14:41 14:41 18:10 Creatine Kinase 45 CK-MB (CK-2) 1.37 Troponin I 0.333 0.298 NT-Pro-B Natriuret Pep 1460 H 02/13/19 02/13/19 02/14/19 21:08 21:08 03:13 Creatine Kinase 44 45 CK-MB (CK-2) 1.13 Troponin I 0.285 NT-Pro-B Natriuret Pep 02/14/19 02/14/19 02/14/19 03:13 09:32 09:32 Creatine Kinase 49 CK-MB (CK-2) 1.10 1.10 Troponin I 0.226 0.225 NT-Pro-B Natriuret Pep 02/14/19 02/14/19 02/14/19 14:50 14:50 20:30 Creatine Kinase 45 45 CK-MB (CK-2) 0.83 Troponin I 0.229 NT-Pro-B Natriuret Pep 02/14/19 02/15/19 02/16/19 20:30 06:28 08:24 Creatine Kinase CK-MB (CK-2) 0.74 Troponin I 0.230 0.239 0.075 NT-Pro-B Natriuret Pep 402 Impressions: Chest X-Ray 02/13/19 14:26 IMPRESSION: Mild bibasilar atelectasis. Emphysema. Chest/Abdomen CTA 02/15/19 06:00 IMPRESSION: 1. Negative examination for pulmonary embolism. 2. Coronary artery disease. 3. Age indeterminate, partially imaged superior endplate deformity of the L1 vertebral body. Assessment and Plan - Diagnosis (1) Non-ST elevation RI (NSTEMI) Is this a current diagnosis for this admission?: Yes Plan: No chest pain recurrence. Continue telemetry Continue ASA, valsartan, statins and heparin. Troponins 0.022, 0.023, 0.0239. TSH 0.58. Ejection fraction within normal limits. Left heart cath was canceled. She is pending transfer to a tertiary center. Cardiology following. (2) Hypertension Is this a current diagnosis for this admission?: Yes Plan: Not optimized. SBP 150s -170s Increase ARB, switch HCTZ to chlorthalidone. Continue Lasix. Optimize meds as needed. (3) COPD exacerbation Is this a current diagnosis for this admission?: Yes Plan: DuoNeb's, supplemental oxygen, incentive spirometry, PRN BiPAP. Started on steroids. Former smoker. Saturating high 90s on 2 L. Not on home oxygen. (4) Congestive heart failure (CHF) Is this a current diagnosis for this admission?: Yes Plan: Acute diastolic heart failure likely due to NSTEMI. BNP 1460 on admission, 402 on 02/15/2019. Weight 97.8 down from 99.9. Continued on Lasix. Monitor volume status. Cardiac diet. 02/14/2019. 2D echo positive for mild diastolic dysfunction. (5) Elevated troponin Is this a current diagnosis for this admission?: Yes Plan: Problem #1. (6) Obesity (BMI 30-39.9) Is this a current diagnosis for this admission?: No Plan: Diet and lifestyle modification.
[2019-02-16] MEDS: ATORVASTATIN CALCIUM 10 MG TABLET PO SCH (21:36)
--- NOTE | 2019-02-16 21:49 | EKG REPORT ---
SEVERITY:- NORMAL ECG - SINUS RHYTHM : Confirmed by: Amy Chung MD 16-Feb-2019 21:48:34
--- NOTE | 2019-02-16 22:33 | Progress Note ---
Provider Note Provider Note: CARDIOLOGY PROGRESS NOTE by Dr. Amy Chung on 02/16/2019. SUBJECTIVE: The patient states that shortness of breath is much improved. She has no wheezing. She still has some degree of orthopnea. There is no chest pain or discomfort. The patient has no localized shortness of breath in the left front of the chest as she did earlier on. There is no arrhythmia seen on the monitor. The patient has no PND. There is no leg edema. There is no TIA CVA symptoms. PHYSICAL EXAMINATION: The patient is moderately obese. She is well-groomed. In no acute distress. Selected Entries 02/16/19 12:03 Temperature 97.3 F Temperature Oral Source Pulse Rate 66 Respiratory 18 Rate Blood Pressure 134/62 H Blood Pressure 86 Mean BP Location Right Arm BP Position Sitting O2 Sat by Pulse 94 Oximetry Oxygen Delivery Room Air Method HEAD: Is atraumatic normocephalic. EYES: Pupils are equal round regular react to light accommodation. Extraocular movements are normal. There is no conjunctival pallor there is no scleral icterus. EARS: Tympanic membranes are intact. External auditory canals are clear. NOSE: There is no deviated nasal septum. There is no inflammation of the nasal mucous membranes. MOUTH: Mucous membranes of mouth are moist tongue is moist. There is no ulcers. There is no bleeding from the gums. THROAT: There is no redness of the oropharynx. There is no exudates. SKIN: There is no skin rashes or skin lesions. There is no particular ecchymosis. NECK: Is supple there is no JVD. Carotids are equal there is no bruit. There is no lymphadenopathy. There is no goiter. There is no accessory muscle respiration use. There is no neck stiffness. Trachea central LUNGS: Fairly clear to auscultation percussion without any rhonchi rales or wheezing. There is no chest wall tenderness. HEART: S1-S2 is heard. S1 is of normal intensity. There is no S3 gallop. There is no S4 gallop. There is systolic murmur left sternal border and the apex there is no rub. ABDOMEN: Is obese nontender there is no hepatosplenomegaly. Bowel sounds is well heard. There is no rebound guarding or rigidity. EXTREMITIES: Femorals are deep. There is no femoral bruits. Leg pulses are diminished. There is no DVT or cellulitis. There is no pedal edema. There is no calf tenderness. There is no cyanosis or clubbing. BRAND LEAD: The patient is conscious awake alert oriented x3 with no focal deficit. PSYCHIATRIC: The patient judgment insight are intact her affect is normal. 02/15/19 02/16/19 02/16/19 06:28 07:08 07:08 WBC 6.3 RBC 4.76 Hgb 14.6 Hct 42.6 MCV 90 MCH 30.8 MCHC 34.4 RDW 13.4 Plt Count 166 Seg Neutrophils % 89.6 H Lymphocytes % 7.8 L Monocytes % 2.5 L Sodium 137.3 Potassium 4.6 Chloride 94 L Carbon Dioxide 37 H Anion Gap 6 BUN 23 H Creatinine 0.59 Est GFR (Non-Af Amer) > 60 Glucose 153 H Calcium 10.3 H Magnesium 2.2 Total Bilirubin 0.8 Direct Bilirubin 0.3 Neonat Total Bilirubin Not Reportable Neonat Direct Bilirubin Not Reportable Neonat Indirect Bili Not Reportable AST 19 ALT 31 Alkaline Phosphatase 89 Troponin I 0.239 NT-Pro-B Natriuret Pep 402 Total Protein 7.6 Albumin 4.2 02/16/19 08:24 WBC RBC Hgb Hct MCV MCH MCHC RDW Plt Count Seg Neutrophils % Lymphocytes % Monocytes % Sodium Potassium Chloride Carbon Dioxide Anion Gap BUN Creatinine Est GFR (Non-Af Amer) Glucose Calcium Magnesium Total Bilirubin Direct Bilirubin Neonat Total Bilirubin Neonat Direct Bilirubin Neonat Indirect Bili AST ALT Alkaline Phosphatase Troponin I 0.075 NT-Pro-B Natriuret Pep Total Protein Albumin The patient's troponins are trending down. She rates 0.075. Her EKG is within normal limits. IMPRESSION/RECOMMENDATION: 1. Elevated troponin I with the patient complaining of shortness of breath which she localizes over the left front of the chest over a small area [livings for sign] hence need to treat this as a non-ST elevation [place]. Note that the patient CT of the chest does not show any pulmonary emboli. In view of this in view of the troponins, which are now trending down, recommend transfer to tertiary care center for cardiac catheterization. The patient's grandson and the patient want transfer to [place]. We will arrange it in the morning since the patient still has some degree of orthopnea. This would make it difficult for her to lie flat in bed for cardiac catheterization. 2. Acute asthmatic attack: At present resolved note in some acute case of asthma 1 could have talked with Takutsubo cardiomyopathy but this is not evident on the patient's echocardiogram. Note this is resolved. We will start the patient on beta-maura from tomorrow. 3. Hypertension continue current medication. 4. Excellent lipid levels with very high HDL level of 120 and good triglyceride and LDL levels. 5. Moderate obesity. Medications reviewed. Medications added. Medical decision making is of high complexity. Discussed management plan with the attending physician on the case. Will discuss with the tertiary care center in [place] for transfer for cardiac catheterization. The patient is seen in the cardiac catheterization teaching video. Risks of , AK, stroke, vascular trauma, and dye-induced allergy, and complications of conscious sedation have been discussed with the patient. Discussed the plan with the patient and the patient's grandson.. Note 50 minutes spent on this patient with more than 50% of time spent in direct patient care. Will follow
[2019-02-17] MEDS: METHYLPREDNISOLONE INJ 40 MG/1 ML SDV IV SCH ×2 (05:19→14:26)
[2019-02-17] MEDS: HEPARIN SOD (PORCINE) 5,000 UNIT/ML 1 ML SYRINGE SUBCUT SCH ×2 (05:19→14:24)
[2019-02-17] MEDS: PANTOPRAZOLE SODIUM 40 MG TABLET.DR PO SCH (05:20)
[2019-02-17] MEDS: ACETAMINOPHEN 325 MG TABLET PO PRN (05:24)
[2019-02-17] MEDS: LOSARTAN POTASSIUM 50 MG TABLET PO SCH (09:39)
[2019-02-17] MEDS: CETIRIZINE 10 MG TABLET PO SCH (09:41)
[2019-02-17] MEDS: FUROSEMIDE 20 MG TABLET PO SCH (09:41)
[2019-02-17] MEDS: CITALOPRAM HYDROBROMIDE 20 MG TABLET PO SCH (09:41)
[2019-02-17] MEDS: ASPIRIN 81 MG TABLET, ENT COATED PO SCH (09:41)
[2019-02-17] MEDS: DOCUSATE SODIUM 100 MG CAPSULE PO SCH (09:42)
[2019-02-17] MEDS: FLUTICASONE/VILANTEROL 200-25 MCG/DOSE IH SCH (09:42)
[2019-02-17] MEDS: TIOTROPIUM BROMIDE DPI 5 CAP/KIT (18 MCG/CAP) IH SCH (09:43)
[2019-02-17] MEDS: CLOBETASOL PROPIONATE 0.05% CREAM 15 GM TP SCH (09:43)
[2019-02-17] MEDS: CHLORTHALIDONE 25 MG TABLET PO SCH (09:43)
[2019-02-17] MEDS ORDERED: METOPROLOL TARTRATE 25 MG TABLET PO SCH (10:00)
[2019-02-17 13:21] VITALS: BP 131/77
--- NOTE | 2019-02-17 14:12 | PDOC TRANSFER SUMMARY ---
General Admission Date/PCP: 02/14/19 11:23 [place] SOOD Resuscitation Status: Full Code - Transfer Diagnosis (1) Non-ST elevation MD (NSTEMI) Is this a current diagnosis for this admission?: Yes (2) Hypertension Is this a current diagnosis for this admission?: Yes (3) COPD exacerbation Is this a current diagnosis for this admission?: Yes (4) Congestive heart failure (CHF) Is this a current diagnosis for this admission?: Yes (5) Elevated troponin Is this a current diagnosis for this admission?: Yes (6) Obesity (BMI 30-39.9) Is this a current diagnosis for this admission?: No - Transfer Medications Home Medications: Citalopram Hydrobromide [Celexa 10 mg Tablet] 20 mg PO DAILY 07/26/16 Albuterol Sulfate [Proair HFA Inhalation Aerosol 8.5 gm MDI] 2 puff IH Q6HP PRN 02/13/19 Cetirizine HCl [Zyrtec 10 mg Tablet] 10 mg PO DAILY 02/13/19 Metoprolol Succinate 100 mg PO DAILY 02/13/19 Telmisartan/Hydrochlorothiazid [Micardis HCT 40-12.5 mg Tablet] 1 tab PO DAILY 02/13/19 Clobetasol Propionate/Emoll [Clobetasol Emollient 0.05% Crm] 1 applic TP BID MDD ARMS 02/14/19 Fluticasone/Salmeterol [Advair 250-50 Diskus 14 Dose/Diskus] 1 inh IH Q12 02/14/19 Transfer Medications: Current Medications Acetaminophen (Tylenol 325 Mg Tablet) 650 mg PO Q4HP PRN PRN Reason: pain or temp greater than 101F Stop: 03/15/19 20:21 Last Admin: 02/17/19 05:24 Dose: 650 mg Documented by: Al Hydrox/Mg Hydrox/Simethicone (Maalox Plus Susp 30 Udcup) 30 ml PO Q4HP PRN PRN Reason: HEARTBURN Stop: 03/15/19 20:21 Albuterol (Proair Hfa Inhalation Aerosol 8.5 Gm Mdi) 2 puff IH Q6HP PRN PRN Reason: FOR WHEEZING Stop: 03/16/19 08:56 Aspirin (Ecotrin 81 Mg Ec Tablet) 81 mg PO DAILY TREV Stop: 03/16/19 09:59 Last Admin: 02/17/19 09:41 Dose: 81 mg Documented by: Atorvastatin Calcium (Lipitor 10 Mg Tablet) 20 mg PO QHS TREV Stop: 03/17/19 21:59 Last Admin: 02/16/19 21:36 Dose: 20 mg Documented by: Cetirizine HCl (Zyrtec 10 Mg Tablet) 10 mg PO DAILY TREV Stop: 03/16/19 09:59 Last Admin: 02/17/19 09:41 Dose: 10 mg Documented by: Chlorthalidone (Hygroton 25 Mg Tablet) 25 mg PO DAILY TREV Stop: 03/17/19 09:59 Last Admin: 02/17/19 09:43 Dose: 25 mg Documented by: Citalopram Hydrobromide (Celexa 20 Mg Tablet) 10 mg PO DAILY TREV Stop: 03/16/19 09:59 Last Admin: 02/17/19 09:41 Dose: 10 mg Documented by: Clobetasol Propionate (Temovate 0.05% Cream 15 Gm) 1 applic TP BID TREV Stop: 03/16/19 17:59 Last Admin: 02/17/19 09:43 Dose: 1 applic Documented by: Docusate Sodium (Colace 100 Mg Capsule) 100 mg PO DAILY [facility] Stop: 03/16/19 09:59 Last Admin: 02/17/19 09:42 Dose: 100 mg Documented by: Fluticasone/Vilanterol (Breo 200-25 Mcg Ellipta 14 Dose/Dpi) 1 inh IH DAILY [facility] Stop: 03/16/19 09:59 Last Admin: 02/17/19 09:42 Dose: 1 inhaler Documented by: Furosemide (Lasix 20 Mg Tablet) 20 mg PO DAILY TREV Stop: 03/15/19 20:29 Last Admin: 02/17/19 09:41 Dose: 20 mg Documented by: Heparin Sodium (Porcine) (Heparin Inj 5,000 Units/Ml 1 Ml Syringe) 5,000 unit SUBCUT Q8 TREV Stop: 03/15/19 21:59 Last Admin: 02/17/19 05:19 Dose: 5,000 unit Documented by: Hydralazine HCl (Apresoline Inj/Pf 20 Mg/1 Ml Sdv) 10 mg IV Q3HP PRN PRN Reason: Give For Sbp > [150] Stop: 03/18/19 07:39 Losartan Potassium (Cozaar 50 Mg Tablet) 100 mg PO DAILY TREV Stop: 03/17/19 09:59 Last Admin: 02/17/19 09:39 Dose: 100 mg Documented by: Magnesium Hydroxide (Milk Of Magnesia 30 Ml Udcup) 30 ml PO HSP PRN PRN Reason: FOR CONSTIPATION Stop: 03/15/19 20:21 Methylprednisolone Sodium Succinate (Solu-Medrol Inj/Pf 40 Mg/1 Ml Sdv) 40 mg IV Q8 TREV Stop: 03/17/19 13:59 Last Admin: 02/17/19 05:19 Dose: 40 mg Documented by: Metoprolol Tartrate (Lopressor 25 Mg Tablet) 25 mg PO Q12 TREV Stop: 03/19/19 09:59 Last Admin: 02/17/19 09:42 Dose: 25 mg Documented by: Pantoprazole Sodium (Protonix [address] Tablet) 40 mg PO Q6AM TREV Stop: 03/16/19 05:59 Last Admin: 02/17/19 05:20 Dose: 40 mg Documented by: Sodium Chloride (Saline Flush 2.5 Ml Monoject Prefil Syrin) 2.5 ml IV Q8 TREV Stop: 03/15/19 21:59 Last Admin: 02/17/19 05:19 Dose: 2.5 ml Documented by: Tiotropium [place] (Spiriva Handihaler 5 Cap/Kit (18 Mcg/Cap)) 1 cap IH DAILY TREV Stop: 03/16/19 09:59 Last Admin: 02/17/19 09:43 Dose: 1 cap Documented by: Zolpidem Tartrate (Ambien 5 Mg Tablet) 5 mg PO HSP PRN PRN Reason: SLEEP OR INSOMNIA Stop: 02/20/19 20:24 - Allergies Allergies/Adverse Reactions: No Known Allergies Allergy (Verified 02/16/19 08:22) - Diet/Activity Discharge Diet: Cardiac Hospital Course Hospital Course: 74 year old female with a past medical history of hypertension, COPD, depression and obesity who presents with 2 weeks of increasing shortness of breath not associated productive cough, with rhinorrhea, sore throat, GERD. Symptoms not improved with home nebulizers she is not required sitting up in bed to sleep and noted swelling of the legs bilaterally. The symptoms prompting her to seek evaluation in the emergency room where she is found to have tachypnea, hyp ertensive urgency 185/80, inferior Q waves, crackles in the bases bilaterally, troponin of 0.3 and a BNP of 1460. She is greatly improved she is never experienced nausea, vomiting, palpitations or chest pain. She is referred to the hospitalist for admission after receiving aspirin, Solu-Medrol and albuterol. Patient denies recent use of [id number] medications and denies a history of congestive heart failure or previous cardiac stress testing. - Diagnosis (1) Non-ST elevation MD (NSTEMI) No chest pain recurrence. Complaining of dyspnea on exertion. Admitted to telemetry. Started on ASA, valsartan, beta-blockers, statins and heparin. Troponins 0.022, 0.023, 0.0239. TSH 0.58. 02/14/2019. 2D echo left ventricular ejection fraction 60%. Cardiology on board. Transfer arranged by Dr. Chung from cardiology. Patient's family and herself wants to be transferred to [place]. (2) Hypertension Euvolemic, normotensive. Start on beta-blockers, ARB, Lasix, PRN hydralazine. (3) COPD exacerbation Start on DuoNeb, mental oxygen, IV steroids, PRN BiPAP. (4) Congestive heart failure (CHF) Acute diastolic heart failure likely due to NSTEMI. BNP 1460 on admission, 402 on 02/15/2019. Weight 97.8 down from 99.9. Continued on Lasix. Monitor volume status. Cardiac diet. 02/14/2019. 2D echo positive for mild diastolic dysfunction. (5) Elevated troponin Problem #1. (6) Obesity (BMI 30-39.9) Diet and lifestyle modification recommended. Physical Exam Vital Signs: Temp Pulse Resp BP Pulse Ox 97.5 F 51 L 16 131/77 H 96 02/17/19 12:13 02/17/19 12:13 02/17/19 12:13 02/17/19 12:13 02/17/19 12:13 Intake & Output 02/16/19 02/17/19 02/18/19 06:59 06:59 06:59 Intake Total 1575 2120 Output Total 0 Balance 1575 2120 Weight 97.8 kg 97.8 kg General appearance: PRESENT: obese Head exam: PRESENT: atraumatic, normocephalic Neck exam: ABSENT: carotid bruit, JVD, lymphadenopathy, thyromegaly Respiratory exam: PRESENT: clear to auscultation raul. ABSENT: rales, rhonchi, wheezes Cardiovascular exam: PRESENT: RRR. ABSENT: diastolic murmur, rubs, systolic murmur GI/Abdominal exam: PRESENT: normal bowel sounds, soft. ABSENT: distended, guarding, mass, organolmegaly, rebound, tenderness Extremities exam: PRESENT: full ROM. ABSENT: calf tenderness, clubbing, pedal edema Neurological exam: PRESENT: alert, awake, oriented to person, oriented to place, oriented to time, oriented to situation, CN II-XII grossly intact. ABSENT: motor sensory deficit Results Laboratory Results: 02/16/19 07:08 02/16/19 07:08 02/13/19 02/13/19 02/13/19 14:41 14:41 18:10 Creatine Kinase 45 CK-MB (CK-2) 1.37 Troponin I 0.333 0.298 NT-Pro-B Natriuret Pep 1460 H 02/13/19 02/13/19 02/14/19 21:08 21:08 03:13 Creatine Kinase 44 45 CK-MB (CK-2) 1.13 Troponin I 0.285 NT-Pro-B Natriuret Pep 02/14/19 02/14/19 02/14/19 03:13 09:32 09:32 Creatine Kinase 49 CK-MB (CK-2) 1.10 1.10 Troponin I 0.226 0.225 NT-Pro-B Natriuret Pep 02/14/19 02/14/19 02/14/19 14:50 14:50 20:30 Creatine Kinase 45 45 CK-MB (CK-2) 0.83 Troponin I 0.229 NT-Pro-B Natriuret Pep 02/14/19 02/15/19 02/16/19 20:30 06:28 08:24 Creatine Kinase CK-MB (CK-2) 0.74 Troponin I 0.230 0.239 0.075 NT-Pro-B Natriuret Pep 402 Impressions: Chest X-Ray 02/13/19 14:26 IMPRESSION: Mild bibasilar atelectasis. Emphysema. Chest/Abdomen CTA 02/15/19 06:00 IMPRESSION: 1. Negative examination for pulmonary embolism. 2. Coronary artery disease. 3. Age indeterminate, partially imaged superior endplate deformity of the L1 vertebral body.
== END 2019-02-17 15:25 | disposition short-term general hospital (02) | DRG 280 ==
LOC: ER 14:04 → INTOOBSV 20:31 → OBSVTOIN 20:31 → EH 20:31 → 3W 21:57 → OBSVTOIN 02-14 11:23
PROVIDERS: ADMIT Internal Medicine; ATTEND Internal Medicine
DX: I21.4 Non-ST elevation (NSTEMI) myocardial infarction (principal); I50.31 Acute diastolic (congestive) heart failure; F32.9 Major depressive disorder, single episode, unspecified; E66.9 Obesity, unspecified; K21.9 Gastro-esophageal reflux disease without esophagitis; I16.0 Hypertensive urgency; J34.89 Other specified disorders of nose and nasal sinuses; J43.9 Emphysema, unspecified; I50.9 Heart failure, unspecified; I10 Essential (primary) hypertension; Z79.51 Long term (current) use of inhaled steroids; Z87.891 Personal history of nicotine dependence; Z82.49 Family history of ischemic heart disease and other diseases of the circulatory system; Z79.82 Long term (current) use of aspirin
CPT/HCPCS: 36415; 71045; 71275; 80048; 80053; 80061; 82550; 82553; 83735; 83880; 84443; 84484; 85025; 93005; 93010; 93306; 94640; 96374; 96375; 96376; 99285; G0378; J1644; J1940; J2920; J2930; J3490; J7620